=== PATIENT | male | born 1975 | race Two or more races ===

== ENCOUNTER 2023-04-25 19:21 | Emergency (ER) | payer MEDICAID ==
[~2023-04-25] VITALS: Ht 175.3 cm; Wt 79.8 kg
[2023-04-25 20:55] VITALS: BP 162/104; TEMP 98.1; O2SAT 98
[2023-04-25] MEDS ORDERED: TRIA80OI TP (21:13)
[2023-04-25] MEDS ORDERED: PRED50TA PO (21:25)
== END 2023-04-25 21:50 | disposition home or self-care (01) ==
LOC: ER 19:35
DX: L42 Pityriasis rosea (principal)